=== PATIENT | male | born 1965 | race American Indian/Alaskan Native ===

== ENCOUNTER 2019-12-15 08:33 | Emergency (ER) | payer SELFPAY ==
[2019-12-15] MEDS ORDERED: ASPIRIN 325 MG TAB PO ONE (08:38)
[2019-12-15 09:20] LABS: Basophils # (Auto) 0.1 K/mm3 (0.0-0.1); Basophils % (Auto) 0.7 % (0.0-1.8); Eosinophils # (Auto) 0.1 K/mm3 (0.0-0.4); Eosinophils % (Auto) 1.4 % (0.0-4.3); Hematocrit 40.4 % (35.5-45.6); Hemoglobin 13.8 gm/dl (11.8-15.2); Lymphocytes # (Auto) 1.1 K/mm3 (1.2-5.4); Lymphocytes % (Auto) 14.1 % (13.4-35.0); Mean Corpuscular HGB Conc 34 % (32-34); Mean Corpuscular Volume 84 fl (84-94); Monocytes # (Auto) 0.8 K/mm3 (0.0-0.8); Monocytes % (Auto) 10.3 % (0.0-7.3); Platelet Count 278 K/mm3 (140-440); Red Blood Count 4.81 M/mm3 (3.65-5.03); Red Cell Distribution Width 14.8 % (13.2-15.2)
[2019-12-15 09:25] LABS: BUN/Creatinine Ratio 16; Blood Urea Nitrogen 16 mg/dL (9-20); Calcium 9.4 mg/dL (8.4-10.2); Hemolysis Index 14
[2019-12-15 09:42] LABS: INR 0.97 (0.87-1.13)
[2019-12-15] MEDS ORDERED: ACETAMINOPHEN 325 MG TAB PO PRN (09:53)
[2019-12-15] MEDS ORDERED: FAMOTIDINE 20 MG TAB PO STA (09:53)
[2019-12-15] MEDS ORDERED: CLOPIDOGREL 75 MG TAB PO STA (09:53)
[2019-12-15] MEDS ORDERED: NITROGLYCERIN 0.4 MG TAB SUBL SL PRN (09:53)
[2019-12-15] MEDS ORDERED: amLODIPine 10 MG TAB PO SCH (10:00)
[2019-12-15] MEDS ORDERED: hydrALAZINE 25 MG TAB PO SCH ×2 (10:00→14:00)
[2019-12-15] MEDS ORDERED: hydroCHLOROthiazide 12.5 MG CAP PO SCH (10:00)
--- NOTE | 2019-12-15 10:06 | Emergency Department Report ---
ED General Adult HPI - General Chief complaint: Chest Pain Stated complaint: CHEST PAIN PUI?: No Time Seen by Provider: 12/15/19 08:54 Source: patient, RN notes reviewed, old records reviewed Mode of arrival: Ambulatory Limitations: No Limitations - History of Present Illness Initial comments: The patient was evaluated in the emergency department for symptoms described in the history of present illness. He/she was evaluated in the context of the global COVID-19 pandemic, which necessitated consideration that the patient alex ht be at risk for infection with the virus that causes COVID-19. Institutional protocols and algorithms that pertain to the evaluation of patients at risk for COVID-19 are in a state of rapid change based on information released by regulatory bodies including the CDC and federal and state organizations. These policies and algorithms were followed during the patient's care in the emergency department. Please note that these policies, procedures and recommendations changed on a rapid basis. Patient is a 54-year-old gentleman. Patient has a history of morbid obesity, hypertension, high cholesterol, probable obstructive sleep apnea, although, he does not have a CPAP, patient was admitted to this hospital within the past week and a half, had a cardiac catheterization, showing an ejection fraction of 55%, left coronary artery was found to be normal, left main without significant disease, LAD and diagonal branches show only mild disease, circumflex after the first obtuse marginal branch is completely occluded, however, excellent collaterals noted to the distal marginal branch, both left coronary system and right coronary artery. First marginal branch without significant disease. A right coronary artery dominant vessel was noted to be totally occluded in the proximal one third. Distal vessel was noted to be filling late through intra- arterial collaterals. In addition, distal marginal branches filling on RCA injection. Distal stents were noted. These are completely occluded. However, extension of the occlusion started from the proximal part to the PDA. These findings were felt to be consistent with chronic occlusion of the mid and distal RCA. Patient was also noted to have chronic occlusion of the distal obtuse marginal branch in 2016, and also was found to have chronic occlusion of the RCA, noted to be "chronic." In addition, the patient was documented as not being on medical therapy. He was started on medical therapy, with plan for reevaluation. At the time of discharge, dual antiplatelet therapy, statin, and antianginal medication were recommended, as per cardiology recommendation "patient needs to follow-up in office if patient fails medical therapy, consider DATA ENTRY REPRESENTATIVE of the circumflex and RCA but needs to be compliant with medications first." Patient states that he has been compliant with his medications, including dual antiplatelet therapy, as well as isosorbide. He is not on CPAP. He presents to the ER today with complaints of central and left-sided chest pain, this started at 3:00 in the morning, which moved down his left upper extremity, lasted for a few minutes, after eating [place] food. There is no vomiting, diaphoresis or exertional shortness of breath. His symptoms are now resolved. He denies leg pain or leg swelling. He denies headache and neck pain, abdominal pain, hematemesis and bright red blood per rectum. 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 -: Sudden, minutes(s) Location: chest Radiation: extremity Severity scale (0 -10): 9 Consistency: now resolved Improves with: none Worsens with: none - Related Data Home Medications Medication Instructions Recorded Confirmed Last Taken Atorvastatin 40 mg PO DAILY 12/15/19 12/15/19 12/14/19 Previous Rx's Medication Instructions Recorded Last Taken Type Acetaminophen [Acetaminophen TAB] 650 mg PO Q4H PRN tablet 12/09/19 Unknown Rx Aspirin [Aspirin BABY CHEW TAB] 81 mg PO QDAY 30 Days #30 tab.chew 12/09/19 12/15/19 Rx AtorvaSTATin [Lipitor] 80 mg PO QHS 30 Days #30 tablet 12/09/19 12/14/19 Rx Clopidogrel [Plavix] 75 mg PO QDAY 30 Days #30 tablet 12/09/19 12/15/19 Rx Famotidine [Pepcid] 20 mg PO QDAY 30 Days #30 tablet 12/09/19 12/15/19 Rx ISOSORBIDE MONOnitrate [Imdur ER] 60 mg PO QDAY 30 Days #30 tablet 12/09/19 12/15/19 Rx Nitroglycerin [Nitrostat] 0.4 mg SL Q5M PRN #30 tablet 12/09/19 12/15/19 Rx amLODIPine 10 mg PO QDAY 30 Days #30 tablet 12/09/19 12/15/19 Rx hydrALAZINE [Apresoline TAB] 50 mg PO Q8HR 30 Days #90 tablet 12/09/19 12/15/19 Rx hydroCHLOROthiazide [HCTZ] 12.5 mg PO QDAY 30 Days #30 capsule 12/09/19 12/15/19 Rx Allergies Allergy/AdvReac Type Severity Reaction Status Date / Time No Known Allergies Allergy Unverified 08/29/19 21:14 ED Review of Systems ROS: Stated complaint: CHEST PAIN Other details as noted in HPI Constitutional: denies: diaphoresis, fever Eyes: denies: vision change Respiratory: denies: cough, wheezing Cardiovascular: chest pain Gastrointestinal: denies: nausea, vomiting Musculoskeletal: denies: back pain Neurological: denies: weakness Hematological/Lymphatic: denies: easy bleeding ED Past Medical Hx - Past Medical History Previous Medical History?: Yes Hx Heart Attack/AMI: Yes Hx Congestive Heart Failure: No Hx Diabetes: No Hx Asthma: No Hx COPD: No Additional medical history: gout, cardiac stent x2 - Surgical History Past Surgical History?: Yes Hx Coronary Stent: Yes - Social History Smoking Status: Current Every Day Smoker Substance Use Type: Alcohol, Prescribed - Medications Home Medications: Home Medications Medication Instructions Recorded Confirmed Last Taken Type Acetaminophen [Acetaminophen TAB] 650 mg PO Q4H PRN tablet 12/09/19 12/15/19 Unknown Rx Aspirin [Aspirin BABY CHEW TAB] 81 mg PO QDAY 30 Days #30 tab.chew 12/09/19 12/15/19 12/15/19 Rx AtorvaSTATin [Lipitor] 80 mg PO QHS 30 Days #30 tablet 12/09/19 12/15/19 12/14/19 Rx Clopidogrel [Plavix] 75 mg PO QDAY 30 Days #30 tablet 12/09/19 12/15/19 12/15/19 Rx Famotidine [Pepcid] 20 mg PO QDAY 30 Days #30 tablet 12/09/19 12/15/19 12/15/19 Rx ISOSORBIDE MONOnitrate [Imdur ER] 60 mg PO QDAY 30 Days #30 tablet 12/09/19 12/15/19 12/15/19 Rx Nitroglycerin [Nitrostat] 0.4 mg SL Q5M PRN #30 tablet 12/09/19 12/15/19 12/15/19 Rx amLODIPine 10 mg PO QDAY 30 Days #30 tablet 12/09/19 12/15/1920 Rx hydrALAZINE [Apresoline TAB] 50 mg PO Q8HR 30 Days #90 tablet 12/09/19 12/15/19 12/15/19 Rx hydroCHLOROthiazide [HCTZ] 12.5 mg PO QDAY 30 Days #30 capsule 12/09/19 12/15/19 12/15/19 Rx Atorvastatin 40 mg PO DAILY 12/15/19 12/15/19 12/14/19 History ED Physical Exam - General Limitations: No Limitations General appearance: alert, in no apparent distress, obese - Head Head exam: Present: atraumatic, normocephalic - Eye Eye exam: Present: normal appearance, EOMI. Absent: nystagmus - ENT ENT exam: Present: normal exam, normal orophraynx, mucous membranes moist, nor mal external ear exam - Neck Neck exam: Present: normal inspection, full ROM. Absent: tenderness, meningismus - Respiratory Respiratory exam: Present: normal lung sounds bilaterally. Absent: respiratory distress, wheezes, rales, rhonchi, stridor - Cardiovascular Cardiovascular Exam: Present: regular rate, normal rhythm, normal heart sounds. Absent: bradycardia, tachycardia, irregular rhythm, systolic murmur, diastolic murmur, rubs, gallop - GI/Abdominal GI/Abdominal exam: Present: soft. Absent: distended, tenderness, guarding, rebound, rigid, pulsatile mass - Rectal Rectal exam: Present: deferred - Extremities Exam Extremities exam: Present: normal inspection, full ROM, other (2+ pulses noted in the bilateral upper and lower extremities. There is no palpable cord. negative Homans sign. Muscular compartments are soft. The pelvis is stable.). Absent: pedal edema, calf tenderness - Back Exam Back exam: Present: normal inspection, full ROM. Absent: tenderness, CVA tenderness (R), CVA tenderness (L), paraspinal tenderness, vertebral tenderness - Neurological Exam Neurological exam: Present: alert, oriented X3, other (No facial droop. Tongue midline. Extraocular movements intact bilaterally. Facial sensation intact to light touch in V1, V2, V3 distribution bilaterally. 5 and a 5 strength in 4 extremities. Sensation intact to light touch in 4 extremities.). Absent: motor sensory deficit - Psychiatric Psychiatric exam: Present: normal affect, normal mood - Skin Skin exam: Present: warm, dry, intact, normal color. Absent: rash ED Course Vital Signs 12/15/19 12/15/19 12/15/19 08:37 09:00 09:03 Temperature 98.5 F Pulse Rate 92 H 94 H Respiratory 20 22 20 Rate Blood Pressure 187/88 Blood Pressure [Right] O2 Sat by Pulse 96 98 98 Oximetry 12/15/19 12/15/19 12/15/19 09:05 09:15 09:30 Temperature Pulse Rate 92 H 88 Respiratory 14 23 Rate Blood Pressure 164/82 167/88 Blood Pressure 164/82 [Right] O2 Sat by Pulse 98 91 Oximetry 12/15/19 12/15/19 12/15/19 09:45 10:15 10:31 Temperature Pulse Rate 88 83 82 Respiratory 14 18 17 Rate Blood Pressure 167/88 182/62 196/58 Blood Pressure [Right] O2 Sat by Pulse 98 96 93 Oximetry 12/15/19 12/15/19 12/15/19 10:45 11:01 11:15 Temperature Pulse Rate 72 82 77 Respiratory 19 20 18 Rate Blood Pressure 197/108 126/66 126/66 Blood Pressure [Right] O2 Sat by Pulse 94 94 98 Oximetry 12/15/19 12/15/19 12/15/19 11:24 11:31 11:45 Temperature Pulse Rate 77 76 85 Respiratory 18 13 19 Rate Blood Pressure 128/59 128/59 Blood Pressure 126/66 [Right] O2 Sat by Pulse 98 89 97 Oximetry 12/15/19 12/15/19 12:01 12:15 Temperature Pulse Rate 63 67 Respiratory 30 H 21 Rate Blood Pressure 189/88 189/88 Blood Pressure [Right] O2 Sat by Pulse 91 98 Oximetry - Reevaluation(s) Reevaluation #1: 12/15/19 10:07 Differential diagnosis, include but not limited to: Chronic angina, GERD, gastritis, hiatal hernia, pneumonia Assessment and plan: 54-year-old gentleman who just had a cardiac catheterization within the past 2 weeks, found to have chronic total occlusions, reinitiated on medical therapy, who is now chest pain-free at this time. His EKG is unchanged x2. He endorses compliance with his medications. He is not currently tachycardic, tachypneic or hypoxic, I find him to be low risk by Wells criteria for pulmonary embolism, blood pressure now in the 160s, has equal pulses in the upper and lower extremities, unremarkable x-ray of the chest, we do not suspect aortic disease. I suspect that patient is experiencing the natural history of his chronic ischemic heart disease, which does not appear to be acutely decompensated at this time. I have requested a formal cardiology consultation, and he was seen and evaluated by Dr Ada Dao and Orlin Barber EKG x2, troponin x2 will be obtained, patient states he took all of his medications this morning, cardiology is recommended outpatient follow-up, with diet lifestyle modifications, I have also counseled the patient in a similar fashion, he will need to follow-up with an outpatient sleep specialist for presumed obstructive sleep apnea. He may benefit from Ranexa, I am awaiting cardiology's formal recommendations. Reevaluation #2: 12/15/19 12:45 EKG unchanged x2. Troponin negative x2. Blood pressure improved. Patient feels improved. No further events. Observed in this department for hours without clinical decompensation. Suitable for discharge home with trial of outpatient management, he will also be referred to an outpatient sleep specialist. ED Medical Decision Making - Lab Data Result diagrams: 12/15/19 08:49 12/15/19 08:49 Vital Signs 12/15/19 12/15/19 12/15/19 08:37 09:00 09:03 Temperature 98.5 F Pulse Rate 92 H 94 H Respiratory 20 22 20 Rate Blood Pressure 187/88 Blood Pressure [Right] O2 Sat by Pulse 96 98 98 Oximetry 12/15/19 12/15/19 12/15/19 09:05 09:15 09:30 Temperature Pulse Rate 92 H 88 Respiratory 14 23 Rate Blood Pressure 164/82 167/88 Blood Pressure 164/82 [Right] O2 Sat by Pulse 98 91 Oximetry 12/15/19 09:45 Temperature Pulse Rate 88 Respiratory 14 Rate Blood Pressure 167/88 Blood Pressure [Right] O2 Sat by Pulse 98 Oximetry Lab Results 12/15/19 12/15/19 12/15/19 Range/Units 08:49 08:49 09:03 WBC 7.8 (4.5-11.0) K/mm3 RBC 4.81 (3.65-5.03) M/mm3 Hgb 13.8 (11.8-15.2) gm/dl Hct 40.4 (35.5-45.6) % MCV 84 (84-94) fl MCH 29 (28-32) pg MCHC 34 (32-34) % RDW 14.8 (13.2-15.2) % Plt Count 278 (140-440) K/mm3 Lymph % (Auto) 14.1 (13.4-35.0) % [place] % (Auto) 10.3 H (0.0-7.3) % Eos % (Auto) 1.4 (0.0-4.3) % Baso % (Auto) 0.7 (0.0-1.8) % Lymph # (Auto) 1.1 L (1.2-5.4) K/mm3 [place] # (Auto) 0.8 (0.0-0.8) K/mm3 Eos # (Auto) 0.1 (0.0-0.4) K/mm3 Baso # (Auto) 0.1 (0.0-0.1) K/mm3 Seg Neutrophils % 73.5 H (40.0-70.0) % Seg Neutrophils # 5.7 (1.8-7.7) K/mm3 PT 13.0 (12.2-14.9) Sec. INR 0.97 (0.87-1.13) Sodium 138 (137-145) mmol/L Potassium 4.2 (3.6-5.0) mmol/L Chloride 96.0 L (98-107) mmol/L Carbon Dioxide 28 (22-30) mmol/L Anion Gap 18 mmol/L BUN 16 (9-20) mg/dL Creatinine 1.0 (0.8-1.3) mg/dL Estimated GFR > 60 ml/min BUN/Creatinine Ratio 16 % Glucose 209 H (75-100) mg/dL Calcium 9.4 (8.4-10.2) mg/dL Magnesium (1.7-2.3) mg/dL Total Creatine Kinase (55-170) units/L Troponin T 0.021 (0.00-0.029) ng/mL 12/15/19 Range/Units 09:03 WBC (4.5-11.0) K/mm3 RBC (3.65-5.03) M/mm3 Hgb (11.8-15.2) gm/dl Hct (35.5-45.6) % MCV (84-94) fl MCH (28-32) pg MCHC (32-34) % RDW (13.2-15.2) % Plt Count (140-440) K/mm3 Lymph % (Auto) (13.4-35.0) % [place] % (Auto) (0.0-7.3) % Eos % (Auto) (0.0-4.3) % Baso % (Auto) (0.0-1.8) % Lymph # (Auto) (1.2-5.4) K/mm3 [place] # (Auto) (0.0-0.8) K/mm3 Eos # (Auto) (0.0-0.4) K/mm3 Baso # (Auto) (0.0-0.1) K/mm3 Seg Neutrophils % (40.0-70.0) % Seg Neutrophils # (1.8-7.7) K/mm3 PT (12.2-14.9) Sec. INR (0.87-1.13) Sodium (137-145) mmol/L Potassium (3.6-5.0) mmol/L Chloride (98-107) mmol/L Carbon Dioxide (22-30) mmol/L Anion Gap mmol/L BUN (9-20) mg/dL Creatinine (0.8-1.3) mg/dL Estimated GFR ml/min BUN/Creatinine Ratio % Glucose (75-100) mg/dL Calcium (8.4-10.2) mg/dL Magnesium 2.20 (1.7-2.3) mg/dL Total Creatine Kinase 187 H (55-170) units/L Troponin T (0.00-0.029) ng/mL - EKG Data -: EKG Interpreted by Vt EKG shows normal: sinus rhythm Rate: normal - EKG Data When compared to previous EKG there are: no significant change 12/15/19 10:10 EKG #1 shows a sinus rhythm, 87 bpm, there is a left axis deviation, left anterior fascicular block, right bundle branch block, QTC is prolonged, the EKG is abnormal, the EKG is not a STEMI, EKG #2 is unchanged from prior, neither EKG is a STEMI, both EKGs are unchanged from prior EKGs. - Radiology Data Radiology results: report reviewed, image reviewed X-ray of the chest is negative for acute findings Critical care attestation.: If time is entered above; I have spent that time in minutes in the direct care of this critically ill patient, excluding procedure time. ED Disposition Clinical Impression: Obesity, History of chest pain, Elevated blood pressure reading Disposition: DC-01 TO HOME OR SELFCARE Is pt being admited?: No Does the pt Need Aspirin: No Condition: Stable Additional Instructions: Please continue current outpatient medications. Recommend that patient aggressively lose weight, participate in physical activities and exercise as tolerated, eat plenty of fiber, vegetables and lean protein. Recommend follow-up with your outpatient visitor services associate within the next 7 to 10 days. Recommend follow-up with an outpatient sleep specialist, such as Dr. Hess, for outpatient sleep study, and initiation of CPAP for presumed obstructive sleep apnea. Recommend follow-up with a sleep specialist within the next 7 to 10 days. Recommend avoidance of heavy and spicy foods, and processed foods. Avoid consumption of tobacco and alcohol. Please return to the emergency room right away with new pain, worsening pain, migration of pain, projectile vomiting, change in mental status, confusion, inability to tolerate liquid feeds, new, worsened or different symptoms not present on the initial emergency room evaluation. Referrals: DAVID TRIMBLE MD [Staff Physician] - 3-5 Days RJ HESS MD [Staff Physician] - 3-5 Days
--- NOTE | 2019-12-15 11:42 | XRay Report ---
CHEST 1 VIEW [id number] INDICATION / CLINICAL INFORMATION: Chest Pain COMPARISON: 12/06/2019 FINDINGS: SUPPORT DEVICES: None HEART / MEDIASTINUM: No significant abnormality. LUNGS / PLEURA: No significant pulmonary or pleural abnormality. No pneumothorax. ADDITIONAL FINDINGS: No significant additional findings. IMPRESSION: No significant acute abnormality Signer Name: Ben Barber MD Signed: 12/15/2019 11:38 AM Workstation Name: [id number]
--- NOTE | 2019-12-15 11:45 | Consultation ---
History of Present Illness Consult date: 12/15/19 Requesting physician: HOLLIE FAYE Consult reason: chest pain History of present illness: Pt is a 54 y.o. AA male who presented with complaints of intermittent left-sided chest pain radiating to his L arm since early this AM. Pt works nights and reports chest pain began after he ate a very salty meal around 4am. Pt denies SOB, diaphoresis, or any additional cardiac complaints. No recent fever/chills. Of note, pt underwent LHC on 12/07/2019, which revealed STARCH MANGLE TENDER of RCA and distal Cfx with normal LV systolic fxn. Pt has been noted to be non-compliant with medications in the past; however, he reports he has been taking all of his home meds. BP significantly elevated upon arrival. Trop minimally elevated. No acute ischemic changes on ECG. CXR reveals no acute findings. LHC 12/07/2019 - STARCH MANGLE TENDER of proximal RCA, STARCH MANGLE TENDER of LCx. Echo 12/07/2019 - EF 50-55%, no significant valvular abnormalities. Past History Past Medical History: arrhythmia (Mobitz II AVB), CAD, diabetes, heart failure, hypertension, hyperlipidemia Social history: smoking (daily > 40 yrs). denies: alcohol abuse Medications and Allergies Allergies Allergy/AdvReac Type Severity Reaction Status Date / Time No Known Allergies Allergy Unverified 08/29/19 21:14 Home Medications Medication Instructions Recorded Confirmed Last Taken Type Acetaminophen [Acetaminophen TAB] 650 mg PO Q4H PRN tablet 12/09/19 12/15/19 Unknown Rx Aspirin [Aspirin BABY CHEW TAB] 81 mg PO QDAY 30 Days #30 tab.chew 12/09/19 12/15/19 12/15/19 Rx AtorvaSTATin [Lipitor] 80 mg PO QHS 30 Days #30 tablet 12/09/19 12/15/19 12/14/19 Rx Clopidogrel [Plavix] 75 mg PO QDAY 30 Days #30 tablet 12/09/19 12/15/19 12/15/19 Rx Famotidine [Pepcid] 20 mg PO QDAY 30 Days #30 tablet 12/09/19 12/15/19 12/15/19 Rx ISOSORBIDE MONOnitrate [Imdur ER] 60 mg PO QDAY 30 Days #30 tablet 12/09/19 12/15/19 12/15/19 Rx Nitroglycerin [Nitrostat] 0.4 mg SL Q5M PRN #30 tablet 12/09/19 12/15/19 12/15/19 Rx amLODIPine 10 mg PO QDAY 30 Days #30 tablet 12/09/19 12/15/19 12/15/19 Rx hydrALAZINE [Apresoline TAB] 50 mg PO Q8HR 30 Days #90 tablet 12/09/19 12/15/19 12/15/19 Rx hydroCHLOROthiazide [HCTZ] 12.5 mg PO QDAY 30 Days #30 capsule 12/09/19 12/15/19 12/15/19 Rx Atorvastatin 40 mg PO DAILY 12/15/19 12/15/19 12/14/19 History Active Meds: Active Medications Acetaminophen (Tylenol) 650 mg PO Q4H PRN PRN Reason: Fever >100.5/GIRON Last Admin: 12/15/19 10:10 Dose: 650 mg Documented by: Nitroglycerin (Nitrostat) 0.4 mg SL Q5M PRN PRN Reason: Chest Pain Review of Systems Constitutional: no fever, no chills, no sweats Ears, nose, mouth and throat: no nasal congestion, no sore throat Cardiovascular: chest pain, no orthopnea, no palpitations, no edema, no syncope, no lightheadedness, no shortness of breath, no dyspnea on exertion, no paroxysmal nocturnal dyspnea, no claudication Respiratory: no cough, no shortness of breath, no dyspnea on exertion Gastrointestinal: no abdominal pain, no nausea, no vomiting, no diarrhea, no constipation Genitourinary Male: no dysuria, no flank pain Musculoskeletal: no neck stiffness, no neck pain, no myalgias Integumentary: no rash, no wounds Neurological: no head injury, no paralysis, no weakness, no parathesias, no numbness, no tingling, no seizures, no syncope, no vertigo, no headaches Endocrine: no cold intolerance, no heat intolerance, no polydipsia, no polyuria Hematologic/Lymphatic: no easy bruising, no easy bleeding Allergic/Immunologic: no urticaria Physical Examination Last Vital Signs Temp 98.5 F 12/15/19 08:37 Pulse 77 12/15/19 11:24 Resp 18 12/15/19 11:24 BP 126/66 12/15/19 11:24 Pulse Ox 98 12/15/19 11:24 General appearance: no acute distress HEENT: Positive: EOMI, Normocephaly, Mucus Membranes Moist Neck: Positive: neck supple, trachea midline. Negative: JVD/HJR Cardiac: Positive: Reg Rate and Rhythm, S1/S2. Negative: Audible Murmur Lungs: Positive: clear to auscultation Neuro: Positive: Grossly Intact Abdomen: Positive: Soft, Active Bowel Sounds. Negative: Tender Skin: Negative: Rash Musculoskeletal: No Pain, Normal Range of Motion Extremities: Present: upper extr. pulses, lower extr. pulses. Absent: edema Results 12/15/19 08:49 12/15/19 08:49 Coagulation 12/15/19 Range/Units 09:03 PT 13.0 (12.2-14.9) Sec. INR 0.97 (0.87-1.13) CBC 12/15/19 Range/Units 08:49 WBC 7.8 (4.5-11.0) K/mm3 RBC 4.81 (3.65-5.03) M/mm3 Hgb 13.8 (11.8-15.2) gm/dl Hct 40.4 (35.5-45.6) % Plt Count 278 (140-440) K/mm3 Lymph # (Auto) 1.1 L (1.2-5.4) K/mm3 [place] # (Auto) 0.8 (0.0-0.8) K/mm3 Eos # (Auto) 0.1 (0.0-0.4) K/mm3 Baso # (Auto) 0.1 (0.0-0.1) K/mm3 Comprehensive Metabolic Panel 12/15/19 Range/Units 08:49 Sodium 138 (137-145) mmol/L Potassium 4.2 (3.6-5.0) mmol/L Chloride 96.0 L (98-107) mmol/L Carbon Dioxide 28 (22-30) mmol/L BUN 16 (9-20) mg/dL Creatinine 1.0 (0.8-1.3) mg/dL Glucose 209 H (75-100) mg/dL Calcium 9.4 (8.4-10.2) mg/dL - Imaging and Cardiology Echo: report reviewed (12/07/2019 - EF 50-55%, no significant valvular abnormalities) Cardiac cath: report reviewed (12/07/2019 - STARCH MANGLE TENDER of proximal RCA, STARCH MANGLE TENDER of LCx) EKG: report reviewed, image reviewed - EKG Interpretation EKG: no acute changes EKG interpretations - EKG Sinus rhythms and dysrhythmias: sinus rhythm AV and intraventricular conduction: right bundle branch block, left anterior fascicular QRS axis and voltage: left axis deviation Assessment and Plan Continue bASA, Plavix, and statin. Optimize home antihypertensive regimen. Pt previously not on BB due to Mobitz Type II AVB in the setting of OHS. Plan for eventual repair of CTOs if medical therapy fails; however, pt must remain compliant with home meds. Tobacco cessation reinforced at bedside - pt verbalized understanding. Pt also needs outpatient workup for suspected ALEYDA when clinically stable. Pt seen in conjunction with Dr. Dao, who agrees with the assessment and plan of care. - Patient Problems (1) Angina at rest Status: Acute (2) Chronic total occlusion of coronary artery Status: Chronic (3) CAD (coronary artery disease) Status: Chronic Qualifiers: Coronary Disease-Associated Artery/Lesion type: [place] artery [place] vs. 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
[2019-12-15 12:55] VITALS: BP 146/74
[2019-12-16] MEDS ORDERED: ASPIRIN 81 MG TAB CHEW PO SCH (10:00)
[2019-12-16] MEDS ORDERED: hydroCHLOROthiazide 25 MG TAB PO SCH (10:00)
[2019-12-16] MEDS ORDERED: CLOPIDOGREL 75 MG TAB PO SCH (10:00)
[2019-12-16] MEDS ORDERED: amLODIPine 10 MG TAB PO SCH (10:00)
[2019-12-16] MEDS ORDERED: LOSARTAN 25 MG TAB PO SCH (10:00)
== END 2019-12-15 12:57 | disposition home or self-care (01) ==
LOC: ED 08:33
DX: R07.9 Chest pain, unspecified (principal); E66.01 Morbid (severe) obesity due to excess calories; R03.0 Elevated blood-pressure reading, without diagnosis of hypertension; I10 Essential (primary) hypertension; E78.00 Pure hypercholesterolemia, unspecified; I25.2 Old myocardial infarction; M10.9 Gout, unspecified; F17.200 Nicotine dependence, unspecified, uncomplicated; Z95.5 Presence of coronary angioplasty implant and graft; Z79.899 Other long term (current) drug therapy; Z68.41 Body mass index [BMI] 40.0-44.9, adult; Z87.898 Personal history of other specified conditions
CPT/HCPCS: 36415; 71045; 80048; 82550; 83735; 84484; 85025; 85610; 93005